=== PATIENT | female | born 1985 | race Hispanic/Latino ===

== ENCOUNTER 2022-09-29 07:34 | Observation (INO) | payer BC ==
[2022-09-27 12:31] LABS: BASOPHILS % (AUTO) 0.3 % (0.0-5.0); EOSINOPHILS % (AUTO) 0.5 % (0.0-8.0); HEMATOCRIT 41.2 % (36-48); MEAN CORPUSCULAR HEMOGLOBIN 27.7 pg (27.0-33.0); MEAN CORPUSCULAR HGB CONC 32.3 g/dL (32.0-36.0); MEAN CORPUSCULAR VOLUME 85.7 fL (79-99); MONOCYTES % (AUTO) 6.9 % (3.0-13.0); PLATELET COUNT (AUTO) 306 K/uL (130-400); RED BLOOD CELL COUNT(AUTO) 4.81 MIL/uL (4.00-5.50); RED CELL DISTRIBUTION WIDTH 12.5 % (11.0-15.5); WHITE BLOOD COUNT (AUTO) 6.4 K/uL (4.8-10.8)
[2022-09-27 12:57] VITALS: BP 138/96
[2022-09-29] VITALS (22 sets, daily range): BP systolic 102–133; BP diastolic 56–84
[~2022-09-29] VITALS: Ht 157.5 cm; Wt 86.1 kg
[2022-09-29] MEDS ORDERED: DEXAMETHASONE SOD PHOSPHATE 4 MG/ML 1ML VIAL ONE (07:54)
[2022-09-29] MEDS ORDERED: LACTATED RINGERS 1000ML 1,000 ML IV ONE (07:55)
[2022-09-29] MEDS ORDERED: SCOPOLAMINE HYDROBROMIDE 1 EACH ADH..PATCH TD ONE (07:55)
[2022-09-29] MEDS ORDERED: CEFAZOLIN SODIUM 2 GM VIAL ONE (07:56)
[2022-09-29] MEDS ORDERED: METRONIDAZOLE 500MG/100ML BAG 100 ML ONE (07:57)
[2022-09-29] MEDS ORDERED: PHENAZOPYRIDINE HCL 200 MG TABLET ONE (08:03)
[2022-09-29] MEDS ORDERED: ONDANSETRON 4MG INJ ONE ×2 (09:21→12:24)
[2022-09-29] MEDS ORDERED: LIDOCAINE PF 100MG/5ML (2%) SYRINGE 5ML ONE (09:21)
[2022-09-29] MEDS ORDERED: MIDAZOLAM HCL 1 MG/ML 2ML VIAL ONE (09:21)
[2022-09-29] MEDS ORDERED: SUCCINYLCHOLINE 200MG/10ML SYR ONE (09:21)
[2022-09-29] MEDS ORDERED: PROPOFOL 10 MG/ML 20ML VIAL IV ONE (09:21)
[2022-09-29] MEDS ORDERED: DEXAMETHASONE SOD PHOSPHATE 10MG/ML 1ML VIAL ONE (09:21)
[2022-09-29] MEDS ORDERED: ROCURONIUM 10MG/1ML SYR 10 MG/ML ML ONE (09:22)
[2022-09-29] MEDS ORDERED: FENTANYL CITRATE PF 50 MCG/1 ML 5ML AMP IV ONE (09:26)
[2022-09-29] MEDS ORDERED: BUPIVACAINE/PF 0.25% 30ML VIAL IJ ONE ×2 (09:32→10:08)
[2022-09-29] MEDS ORDERED: CEFAZOLIN SODIUM 2 GM VIAL IVPB ONE (09:52)
[2022-09-29] MEDS ORDERED: EPHEDRINE SULFATE 50 MG/ML AMPULE ONE (10:13)
[2022-09-29] MEDS ORDERED: GLYCOPYRROLATE 1 MG/5 ML SYRINGE ONE (11:22)
[2022-09-29] MEDS ORDERED: NEOSTIGMINE 5MG/5ML SYR IV ONE (11:22)
[2022-09-29] MEDS ORDERED: KETOROLAC 30MG VIAL (30MG/ML) ONE (11:25)
[2022-09-29] MEDS ORDERED: MEPERIDINE-PF 25 MG/ML SYG ONE (12:24)
[2022-09-29] MEDS ORDERED: LORAZEPAM 2 MG/ML 1 ML VIAL IVP PRN (13:30)
[2022-09-29] MEDS ORDERED: ONDANSETRON 4MG INJ IVP PRN (13:30)
[2022-09-29] MEDS ORDERED: MORPHINE 10 MG SYG IM PRN (13:30)
[2022-09-29] MEDS: ACETAMINOPHEN 500 MG TABLET PO SCH ×2 (14:14→22:25)
[2022-09-29] MEDS: KETOROLAC 15MG/ML VIAL (15MG/ML) IV SCH (19:39)
[2022-09-30 03:29] VITALS: BP 103/65
[2022-09-30] MEDS: KETOROLAC 15MG/ML VIAL (15MG/ML) IV SCH (03:51)
== END 2022-09-30 04:55 | disposition home or self-care (01) ==
LOC: DAH 07:34 → WSH 07:35 → DAH 07:35
PROVIDERS: ADMIT Obstetrics & Gynecology; ATTEND Obstetrics & Gynecology
DX: D25.9 Leiomyoma of uterus, unspecified (principal); Z20.822 Contact with and (suspected) exposure to COVID-19; R87.613 High grade squamous intraepithelial lesion on cytologic smear of cervix (HGSIL); N85.8 Other specified noninflammatory disorders of uterus; E66.01 Morbid (severe) obesity due to excess calories; F41.9 Anxiety disorder, unspecified; Z79.899 Other long term (current) drug therapy; Z98.51 Tubal ligation status
CPT/HCPCS: 84703; 85025; 86850; 86900; 86901; 87426; 36415; 58552; 96374; 96376; A6260; G0378 ×17; A4663; J7030; J7120 ×2; A4215 ×3; A4344; J3010; J0330; J3490 ×5; J1100 ×2; J2710; J2001; J2250; J2704; J2405 ×2; J1885 ×3; J2175; J0690 ×2; G0168; A4649 ×3; A4223; A4222; A4221; A4600; A4510; L0625; J2270

== ENCOUNTER 2022-12-23 09:46 | Day surgery (SDC) | payer BC ==
[~2022-12-23] VITALS: Ht 157.5 cm; Wt 83.4 kg
[2022-12-23 10:10] VITALS: BP 121/84; PULSE 84; RESP 20
[2022-12-23] MEDS ORDERED: PROPOFOL 10 MG/ML 20ML VIAL IV ONE (12:38)
== END 2022-12-23 13:45 | disposition home or self-care (01) ==
LOC: DAH 09:46 → ENDO 09:46
PROVIDERS: ATTEND Surgery
DX: R10.13 Epigastric pain (principal); Z20.822 Contact with and (suspected) exposure to COVID-19; K29.50 Unspecified chronic gastritis without bleeding; K31.7 Polyp of stomach and duodenum; K80.20 Calculus of gallbladder without cholecystitis without obstruction; R10.12 Left upper quadrant pain; R10.11 Right upper quadrant pain; K22.89 Other specified disease of esophagus; E66.9 Obesity, unspecified; D49.0 Neoplasm of unspecified behavior of digestive system; F41.9 Anxiety disorder, unspecified; M19.90 Unspecified osteoarthritis, unspecified site; Z79.899 Other long term (current) drug therapy; Z98.890 Other specified postprocedural states; Z90.710 Acquired absence of both cervix and uterus; Z90.49 Acquired absence of other specified parts of digestive tract; Z80.0 Family history of malignant neoplasm of digestive organs; Z72.89 Other problems related to lifestyle; Z68.33 Body mass index [BMI] 33.0-33.9, adult
CPT/HCPCS: 43239; 88305 ×2; 88312; J2704; A4620; A4215 ×2; A4223; A4222; A4221; A4663; A4606; J3490

== ENCOUNTER → 2023-01-07 | Outpatient (CLI) | payer BC ==
[~2023-01-07] MED LIST: IOHEXOL 350 MG/ML 100ML INFUS..BTL IV ONE
== END | disposition home or self-care (01) ==
LOC: RAH 09:50
PROVIDERS: ATTEND Surgery
DX: C49.A0 Gastrointestinal stromal tumor, unspecified site (principal); N32.89 Other specified disorders of bladder; K63.89 Other specified diseases of intestine
CPT/HCPCS: 74177; Q9967

== ENCOUNTER 2023-05-28 17:05 | Emergency (ER) | payer BC ==
[~2023-05-28] VITALS: Ht 157.5 cm; Wt 83.9 kg
[2023-05-28 17:37] LABS: BASOPHILS # (AUTO) 0.04 K/uL (0.00-0.20); BASOPHILS % (AUTO) 0.4 % (0.0-5.0); EOSINOPHILS # (AUTO) 0.09 K/uL (0.00-0.70); EOSINOPHILS % (AUTO) 0.9 % (0.0-8.0); HEMATOCRIT 39.8 % (36-48); IMMATURE GRANULOCYTE ABSOLUTE 0.03 K/uL (0-1); LYMPHOCYTES # (AUTO) 2.3 K/uL (1.0-4.8); LYMPHOCYTES % (AUTO) 21.8 % (21.0-51.0); MEAN CORPUSCULAR HEMOGLOBIN 28.7 pg (27.0-33.0); MEAN CORPUSCULAR HGB CONC 34.4 g/dL (32.0-36.0); MEAN CORPUSCULAR VOLUME 83.3 fL (79-99); MONOCYTES # (AUTO) 0.7 K/uL (0.1-1.0); MONOCYTES % (AUTO) 7.1 % (3.0-13.0); NEUTROPHILS # (AUTO) 7.3 K/uL (1.8-7.7); NEUTROPHILS % (AUTO) 69.5 % (40.0-77.0); PLATELET COUNT (AUTO) 330 K/uL (130-400); RED BLOOD CELL COUNT(AUTO) 4.78 MIL/uL (4.00-5.50); WHITE BLOOD COUNT (AUTO) 10.5 K/uL (4.8-10.8)
[2023-05-28 17:47] LABS: CREATININE 0.6 mg/dL (0.5-1.5); POTASSIUM 3.4 mmol/L (3.5-5.1)
[2023-05-28 17:52] LABS: BILIRUBIN,TOTAL 0.5 mg/dL (0.2-1.0); TOTAL PROTEIN, SERUM 7.6 g/dL (6.0-8.3)
[2023-05-28 18:00] LABS: APPEARANCE,URINE CLEAR (CLEAR); BILIRUBIN,URINE NEGATIVE (NEGATIVE); COLOR,URINE YELLOW (YELLOW); GLUCOSE, URINE (UA) NEGATIVE (NEGATIVE); KETONES,URINE 10 mg/dL (NEGATIVE); LEUKOCYTE ESTERASE ,URINE NEGATIVE Leu/uL (NEGATIVE); NITRATE,URINE NEGATIVE (NEGATIVE); OCCULT BLOOD,URINE NEGATIVE (NEGATIVE); PROTEIN,URINE NEGATIVE (NEGATIVE); UROBILINOGEN,URINE 0.2 mg/dL (0.2-1.0)
[2023-05-28] MEDS ORDERED: PANTOPRAZOLE 40 MG/VIAL IVP ONE (18:00)
[2023-05-28 18:01] LABS: ADD UA MICROSCOPIC YES
[2023-05-28 18:03] LABS: BACTERIA,URINE RARE /HPF (None Seen); MUCUS,URINE RARE LPF (None Seen); RBC,URINE 0-1 /HPF (0-1); SQUAMOUS EPITHELIAL CELL,UR FEW /HPF (0-2); WBC,URINE 0-1 /HPF (0-1)
[2023-05-28] MEDS ORDERED: MAG/ALUM/SIMETH 30 ML UDCUP PO ONE (19:00)
[2023-05-28] MEDS ORDERED: ONDANSETRON 4MG INJ IVP ONE (19:00)
[2023-05-28 19:16] VITALS: BP 117/83; PULSE 84; RESP 18; O2SAT 99
[2023-05-28] MEDS ORDERED: OMEP40CA21 PO (21:15)
[2023-05-28] MEDS ORDERED: IBUP-1493 PO (21:15)
[2023-05-28] MEDS ORDERED: ONDA-104 PO (21:15)
[2023-05-28] MEDS ORDERED: KETOROLAC 30MG VIAL (30MG/ML) IVP ONE (21:30)
== END 2023-05-28 21:43 | disposition home or self-care (01) ==
LOC: EDH 17:05
DX: K80.20 Calculus of gallbladder without cholecystitis without obstruction (principal); I10 Essential (primary) hypertension; Z90.710 Acquired absence of both cervix and uterus
CPT/HCPCS: 99284; 96374; 76705; 71045; 96375; 86677; 83735; 80053; 85025; 81001; 36415; 93005; J2405; J1885; C9113

== ENCOUNTER 2023-06-02 06:30 | Day surgery (SDC) | payer BC ==
[~2023-06-02] VITALS: Ht 157.5 cm; Wt 85.7 kg
[2023-06-02] VITALS (14 sets, daily range): BP systolic 116–133; BP diastolic 67–97; PULSE 68–82; RESP 15–20
[2023-06-02] MEDS ORDERED: PROPOFOL 10 MG/ML 20ML VIAL IV ONE (09:01)
[2023-06-02] MEDS ORDERED: ONDANSETRON 4MG INJ ONE (09:26)
== END 2023-06-02 10:47 | disposition home or self-care (01) ==
LOC: DAH 06:30 → ENDO 06:30
PROVIDERS: ATTEND Surgery
DX: R10.13 Epigastric pain (principal); K29.50 Unspecified chronic gastritis without bleeding; K22.89 Other specified disease of esophagus; K80.20 Calculus of gallbladder without cholecystitis without obstruction; C49.A0 Gastrointestinal stromal tumor, unspecified site; F41.9 Anxiety disorder, unspecified; M19.90 Unspecified osteoarthritis, unspecified site; E66.01 Morbid (severe) obesity due to excess calories; Z79.899 Other long term (current) drug therapy; Z98.890 Other specified postprocedural states; Z98.51 Tubal ligation status; Z90.710 Acquired absence of both cervix and uterus; Z80.0 Family history of malignant neoplasm of digestive organs; Z68.34 Body mass index [BMI] 34.0-34.9, adult
CPT/HCPCS: 43239; J2704; J2405; A4620; A4215 ×2; A4223; A4657; A7002; A4222; A4221; A4663; J7030; A4606; J3490